=== PATIENT | male | born 1955 | race Caucasian/White ===

== ENCOUNTER 2019-08-02 18:17 | Emergency (ER) | payer BC, OTHER ==
[~2019-08-02] VITALS: Ht 185.4 cm; Wt 90.7 kg
[2019-08-02 18:35] VITALS: BP_SYST 126
--- NOTE | 2019-08-02 18:46 | NUR ---
Patient to ER bed 08 to gown for evaluation. Side rails up.
--- NOTE | 2019-08-02 18:48 | NUR ---
Pt brought by partner, A&Ox4, pt presents to ER with abd discomfort and constipation since July 20, skin pink and warm, cap refill <3, VSS, respirations even and unlabored, cap refill <3, VSS. pt states he does not want any pain killers since he is on a substance abuse treatment.
--- NOTE | 2019-08-02 18:51 | NUR ---
Joseph Wilkerson at bedside examining patient
[2019-08-02] MEDS ORDERED: LACTULOSE 20 GM/30 ML UDC PO ONE (19:00)
[2019-08-02 19:13] VITALS: BP_SYST 126
--- NOTE | 2019-08-02 19:13 | NUR ---
Patient given written and verbal discharge instructions and verbalizes understanding. ER MD discussed with patient the results and treatment provided. Patient in stable condition. ID arm band removed. Rx of Lactulose given. Patient educated on pain management and to follow up with PMD. Pain Scale 2/10 tolerable for pt. Opportunity for questions provided and answered. Medication side effect fact sheet provided.
== END 2019-08-02 19:13 | disposition home or self-care (01) ==
LOC: SED 18:17
DX: K59.00 Constipation, unspecified (principal)
CPT/HCPCS: 99283